=== PATIENT | female | born 1975 | race African-American/Black ===

== ENCOUNTER 2025-08-09 17:38 | Emergency (ER) | payer MEDICAID ==
[~2025-08-09] VITALS: Ht 165.1 cm; Wt 70.0 kg
[2025-08-09 17:42] VITALS: O2SAT 100
[2025-08-09 19:09] LABS: INFLUENZA TYPE A Presumptive Negative (Pres. Neg.); INFLUENZA TYPE B Presumptive Negative (Pres. Neg.)
[2025-08-09 19:10] LABS: RESPIRATORY SYNCYTIAL VIRUS Not Detected (Not Detectd)
[2025-08-09] MEDS ORDERED: BENZ100C86 MT (20:04)
[2025-08-09] MEDS ORDERED: DOXY100T2 MT (20:04)
[2025-08-09] MEDS ORDERED: TOPUD MT (20:04)
[2025-08-09 20:25] VITALS: BP 118/70; PULSE 100; RESP 18; TEMP 36.7; O2SAT 100
== END 2025-08-09 20:25 | disposition home or self-care (01) ==
LOC: ER 17:38
DX: R05.9 Cough, unspecified (principal); R06.02 Shortness of breath; Z20.822 Contact with and (suspected) exposure to COVID-19
CPT/HCPCS: 71045; 87420; 87426; 87804; 99284